=== PATIENT | male | born 1955 | race Caucasian/White ===

== ENCOUNTER → 2017-10-11 | Day surgery (SDC) | payer BC, OTHER ==
[2017-10-10 09:54] VITALS: BMI 27.2
[~2017-10-11] MED LIST: LACTATED RINGERS 1,000 ML IV SCH; LIDOCAINE 1% 20 ML VIAL (10MG/ML) FOR IV START INTRADERMA PRN; LIDOCAINE 1% INJ 10MG/ML (20 ML MDV) ONE; PROPOFOL 10 MG/ML 20 ML VIAL IV ONE
[2017-10-11 08:53] VITALS: TEMP 97.8
--- NOTE | 2017-10-11 10:31 | P.PCN ---
Date of Procedure: 10/11/17 Procedure(s) Performed: Procedure: Colonoscopy and polypectomy. Preoperative diagnosis: Screening for neoplasia, patient has history of polyps. Postoperative diagnosis: 1. Multiple small polyps snared but no large polyps or cancer. 2. Sigmoid diverticulosis with no evidence of acute diverticulitis or strictures. Preparation: HalfLytely prep. Sedation: Was provided by anesthesia. Brief clinical history: The patient is a 62-year-old male who is scheduled for this evaluation for screening for neoplasia because of history of polyps. His last exam was in 2013. The patient has no abdominal complaints, bleeding or anemia. Procedure: With the patient on his left lateral decubitus position and after informed consent and adequate sedation, the perianal area was inspected and it did not show any fissures or fistulas. There were no masses felt on digital rectal examination. The Olympus CFQ 160L video colonoscope was then inserted in the rectum in the usual fashion and advanced to the cecum. There were multiple small polyps seen and were snared and retrieved by suction. One was around the hepatic flexure and 3 were in the sigmoid. No large polyps or cancer was seen. Several diverticular orifices were seen scattered in the sigmoid but there was no evidence of acute diverticulitis or strictures. I retroflexed the endoscope in the rectum before the endoscope was withdrawn. The patient tolerated the procedure well. Plan: The patient was reassured. Discussed dietary measures. He will follow up with you as planned and I recommended repeat exam in 3-5 years.
[2017-10-11 10:38] VITALS: BP 138/84; PULSE 80; RESP 18
== END | disposition home or self-care (01) ==
LOC: ORWHC2ENDO 12:18
DX: Z12.11 Encounter for screening for malignant neoplasm of colon (principal); D12.3 Benign neoplasm of transverse colon; D12.5 Benign neoplasm of sigmoid colon; K57.30 Diverticulosis of large intestine without perforation or abscess without bleeding; E11.9 Type 2 diabetes mellitus without complications; I10 Essential (primary) hypertension; E78.5 Hyperlipidemia, unspecified; F17.210 Nicotine dependence, cigarettes, uncomplicated; Z86.010 Personal history of colon polyps; Z88.0 Allergy status to penicillin; Z79.84 Long term (current) use of oral hypoglycemic drugs; Z79.899 Other long term (current) drug therapy; Z96.642 Presence of left artificial hip joint
CPT/HCPCS: 45385; 88305; J2001; J2704

== ENCOUNTER → 2017-12-31 | Outpatient (CLI) | payer BC ==
--- NOTE | 2018-01-01 07:22 | US ---
EXAMINATION TYPE: US carotid duplex BILAT DATE OF EXAM: 12/31/2017 COMPARISON: NONE CLINICAL HISTORY: I65.02 Occlusion and stenosis of left vertebral ar. Left carotid bruit EXAM MEASUREMENTS: RIGHT: Peak Systolic Velocity (PSV) cm/sec ----- Right CCA: 66.8 ----- Right ICA: 86.7 ----- Right ECA: 128.7 ICA/CCA ratio: 1.3 RIGHT: End Diastole cm/sec ----- Right CCA: 18.6 ----- Right ICA: 28.0 ----- Right ECA: 22.0 LEFT: Peak Systolic Velocity (PSV) cm/sec ----- Left CCA: 80.2 ----- Left ICA: 90.1 ----- Left ECA: 79.1 ICA/CCA ratio: 1.1 LEFT: End Diastole cm/sec ----- Left CCA: 22.8 ----- Left ICA: 31.6 ----- Left ECA: 12.8 VERTEBRALS (direction of flow): Right Vertebral: Antegrade Left Vertebral: Antegrade Rhythm: Normal Mild plaque bilateral bifurcations. No evidence of significant stenosis IMPRESSION: Mild degree of grayscale atheromatous plaquing with no sonographically evident hemodynam ically significant stenosis within either visualized carotid arterial system.
== END | disposition home or self-care (01) ==
LOC: RADUSWWP 16:43
PROVIDERS: ATTEND Family Medicine
DX: I70.90 Unspecified atherosclerosis (principal)
CPT/HCPCS: 93880

== ENCOUNTER 2020-10-12 07:57 | Day surgery (SDC) | payer BC, MEDICARE ==
[2020-10-08 10:08] VITALS: BMI 43.0
[~2020-10-12 07:57] MED LIST changes: +ALPRAZolam 0.25 MG TAB PO PRN; +ALPRAZolam 0.5 MG TAB PO PRN; +ASPIRIN 325 MG TAB PO STA; +HEPARIN SODIUM,PORCINE 10,000 UNIT in SODIUM CHLORIDE 0.9% 1,000 ML IRRIGATION PRN; +HEPARIN SODIUM,PORCINE 2,500 UNIT in SODIUM CHLORIDE 0.9% 250 ML IRRIGATION PRN; -LACTATED RINGERS 1,000 ML IV SCH; -LIDOCAINE 1% 20 ML VIAL (10MG/ML) FOR IV START INTRADERMA PRN; -LIDOCAINE 1% INJ 10MG/ML (20 ML MDV) ONE; +NITROGLYCERIN SL TABS 0.4 MG TAB SUBLINGUAL PRN; -PROPOFOL 10 MG/ML 20 ML VIAL IV ONE; +SODIUM CHLORIDE 0.9% 1,000 ML in EMPTY BAG 1 BAG IV ONE
[2020-10-12] MEDS ORDERED: ASPIRIN 325 MG TAB ONE (08:22)
[2020-10-12 08:50] LABS: Glucose,Whole Blood 205 mg/dL (75-99)
[2020-10-12] MEDS ORDERED: INSULIN ASPART (NovoLOG) 100 UNIT/ML VIAL SQ ONE (08:53)
[2020-10-12 08:55] VITALS: TEMP 97.9
[2020-10-12] MEDS ORDERED: LIDOCAINE 1% INJ 10MG/ML (20 ML MDV) ONE (08:57)
[2020-10-12] MEDS ORDERED: HEPARIN SODIUM 1,000 UN/ML (10ML VL) ONE (08:57)
[2020-10-12] MEDS ORDERED: VERAPAMIL 2.5 MG/ML 2 ML AMP ONE (08:57)
[2020-10-12] MEDS ORDERED: fentaNYL (PF) 50 MCG/ML 2 ML AMP ONE (09:13)
[2020-10-12] MEDS ORDERED: MIDAZOLAM 2 MG/2 ML VIAL IV ONE (09:13)
[2020-10-12] MEDS ORDERED: fentaNYL (PF) 50 MCG/ML 2 ML AMP IV ONE (09:14)
[2020-10-12] MEDS ORDERED: LIDOCAINE 1% INJ 10MG/ML (20 ML MDV) SQ ONE (09:16)
[2020-10-12] MEDS: VERAPAMIL SYRINGE (5 MG/10 ML) INTRAARTER ONE ×2 (09:17→09:29)
[2020-10-12] MEDS ORDERED: IOPAMIDOL-370 125ML BTL INJ ONE (09:29)
[2020-10-12] MEDS ORDERED: RX INFO: IV CONTRAST WAS GIVEN 1 EACH MISC MISCELLANE PRN (10:05)
--- NOTE | 2020-10-12 10:13 | P.CARDCATH ---
Description of Procedure: PROCEDURES PERFORMED: Left heart catheterization, bilateral coronary angiography INDICATION: Abnormal stress test HISTORY: Patient is a pleasant 65-year-old male with history of hypertension, diabetes mellitus, hyperlipidemia who has been having dyspnea on exertion over past year. He had a Cardiolite stress test performed which showed inducible inferior ischemia as well as poor exercise tolerance and heart catheterization was recommended. CONSENT:I have discussed the risks, benefits and alternative therapies for the above-mentioned procedure and for both sedation/analgesia as well as necessary blood product administration, if indicated, as they pertain to this patient. The patient has indicated understanding and acceptance of the risks and procedures discussed. PROCEDURE: After the risks, benefits and alternatives of the above mentioned procedure explained in detail with the patient, informed consent was obtained. Patient was taken to the catheterization lab and prepped and draped in usual fashion. 1% lidocaine was used to anesthetize the right radial artery. A 6- Bhutanese sheath was placed in the right radial artery using modified Seldinger technique. Left coronary angiography was performed with a 5-Bhutanese JL 3.5 catheter and right coronary angiography was performed with a 5-Bhutanese JR5 catheter in various views. A 5-Bhutanese FR5 catheter was inserted into the left ventricle and pressure measurements were obtained. The right radial sheath was removed and a TR band was placed with hemostasis achieved. The patient tolerated the procedure well. Patient was transported back to the post catheterization holding area in stable condition. Conscious Sedation: Patient was monitored under the direct supervision of vision of myself for conscious sedation using Versed and fentanyl for a total duration of 14 minutes HEMODYNAMICS: Ao: 137/76 LV: 134/3, LVEDP 12 SELECTIVE CORONARY ARTERIOGRAPHY: LEFT MAIN: The left main is a large caliber vessel which trifurcates into the LAD, ramus and circumflex. There is no significant stenosis. LEFT ANTERIOR DESCENDING CORONARY ARTERY: LAD is a large caliber vessel which wraps around to the apex. There is mild proximal LAD 20% stenosis and mid LAD 30-40% stenosis and otherwise mild luminal irregularities. There are left to right collaterals. RAMUS INTERMEDIUS: The ramus is a moderate caliber vessel with mild luminal irregularities. LEFT CIRCUMFLEX CORONARY ARTERY: Left circumflex is a moderate caliber vessel with mild luminal irregularities. RIGHT CORONARY ARTERY: The right coronary artery is a large caliber vessel which gives off a PDA and PLV branch and is the dominant vessel. There is a mid RCA 100% stenosis with some right to right collaterals. FINAL IMPRESSION: 1. CAD as described above with 100% BRIDGE REPAIRER of RCA and mild disease up to 30-40% mid LAD of the left system with left to right and right to right collaterals. 2. Normal left sided filling pressures PLAN: 1. Aggressive risk factor modification per most recent ACC/AHA guidelines. 2. Would treat RCA BRIDGE REPAIRER medically as patient is not having much angina symptoms with collaterals. If symptoms are resistant to medications may consider BRIDGE REPAIRER procedure. 3. Follow-up in the office in 1-2 weeks.
[2020-10-12 15:36] VITALS: RESP 16
[2020-10-12 15:38] VITALS: BP 162/72; PULSE 52
== END 2020-10-12 14:13 | disposition home or self-care (01) ==
LOC: CATHCVL 07:57
PROVIDERS: ATTEND Internal Medicine
DX: I25.10 Atherosclerotic heart disease of native coronary artery without angina pectoris (principal); I25.82 Chronic total occlusion of coronary artery; I10 Essential (primary) hypertension; E78.5 Hyperlipidemia, unspecified; R60.0 Localized edema; R94.31 Abnormal electrocardiogram [ECG] [EKG]; J44.9 Chronic obstructive pulmonary disease, unspecified; R94.39 Abnormal result of other cardiovascular function study; E11.9 Type 2 diabetes mellitus without complications; F17.210 Nicotine dependence, cigarettes, uncomplicated; Z79.84 Long term (current) use of oral hypoglycemic drugs; Z79.4 Long term (current) use of insulin; Z79.51 Long term (current) use of inhaled steroids; Z79.899 Other long term (current) drug therapy; Z88.5 Allergy status to narcotic agent; Z88.0 Allergy status to penicillin
CPT/HCPCS: 93458; J2250; J2001; J3010; J1644; Q9967

== ENCOUNTER → 2020-10-18 | Outpatient (CLI) | payer MEDICARE ==
--- NOTE | 2020-10-18 15:06 | US ---
EXAMINATION TYPE: US venous doppler duplex LE LT DATE OF EXAM: 10/18/2020 2:58 PM COMPARISON: NONE CLINICAL HISTORY: R22.42 swelling lump mass left. Left leg pain and swelling x 3 weeks SIDE PERFORMED: Left TECHNIQUE: The lower extremity deep venous system is examined utilizing real time linear array sonog ajay with graded compression, doppler sonography and color-flow sonography. VESSELS IMAGED: Common Femoral Vein Deep Femoral Vein Greater Saphenous Vein * Femoral Vein Popliteal Vein Small Saphenous Vein * Proximal Calf Veins (* superficial vessels) Left Leg: Appears negative for DVT IMPRESSION: Grayscale, color doppler, spectral doppler imaging performed of the deep veins of the lo wer extremities. There is normal flow, compressibility, vascular waveforms.
== END | disposition home or self-care (01) ==
LOC: RADUSWWP 14:25
PROVIDERS: ATTEND Family Medicine
DX: R22.42 Localized swelling, mass and lump, left lower limb (principal)

== ENCOUNTER 2020-11-03 07:14 | Day surgery (SDC) | payer BC, MEDICARE ==
[2020-11-02 09:16] VITALS: BMI 42.3
[~2020-11-03 07:14] MED LIST changes: -ALPRAZolam 0.25 MG TAB PO PRN; -ALPRAZolam 0.5 MG TAB PO PRN; -ASPIRIN 325 MG TAB PO STA; -HEPARIN SODIUM,PORCINE 10,000 UNIT in SODIUM CHLORIDE 0.9% 1,000 ML IRRIGATION PRN; -HEPARIN SODIUM,PORCINE 2,500 UNIT in SODIUM CHLORIDE 0.9% 250 ML IRRIGATION PRN; +LACTATED RINGERS 1,000 ML IV SCH; +LIDOCAINE 1% (10MG/ML) FOR IV START INTRADERMA PRN; -NITROGLYCERIN SL TABS 0.4 MG TAB SUBLINGUAL PRN; -SODIUM CHLORIDE 0.9% 1,000 ML in EMPTY BAG 1 BAG IV ONE
[2020-11-03 07:58] VITALS: TEMP 97.7
[2020-11-03] MEDS ORDERED: PROPOFOL 10 MG/ML 20 ML VIAL IV ONE (08:04)
--- NOTE | 2020-11-03 08:27 | P.PCN ---
Date of Procedure: 11/03/20 Procedure(s) Performed: BRIEF HISTORY: Patient is a 65-year-old pleasant male scheduled for an elective colonoscopy as a part of evaluation of prior history of colon polyps. Last colonoscopy was 5 years ago. PROCEDURE PERFORMED: Colonoscopy with snare polypectomy. PREOPERATIVE DIAGNOSIS: history of colon polyps. IV sedation per Anesthesia. PROCEDURE: After informed consent was obtained, the patient, was brought into the endoscopy unit. IV sedation was administered by Anesthesia under continuous monitoring. Digital rectal examination was normal. Initially the Olympus CF-160 flexible video colonoscope was then inserted in the rectum, gradually advanced into the cecum without any difficulty. Careful examination was performed as the scope was gradually being withdrawn. Ileocecal valve and the appendiceal orifice were visualized and appeared normal. Prep was excellent. The base of cecum there was a 1 cm flat polyp removed by snare polypectomy. In the ascending colon there was a 5 mm polyp removed by snare polypectomy. In the transverse colon there were 4 polyps measuring between 5 mm to 7 mm all of which were removed by snare polypectomy. In the sigmoid colon there was a 4 mm polyp removed by snare polypectomy. Rest of the mucosa of the cecum, ascending colon, transverse colon, descending colon, sigmoid colon, and rectum appeared normal. Retroflexion was performed in the rectum and no lesions were seen. The patient tolerated the procedure well. IMPRESSION: 1 cm cecal polyp status post polypectomy 5 mm to 7 mm 4 transverse colon polyp status post snare polypectomy 5 mm ascending colon polyp status post polypectomy 4 mm sigmoid colon polyp status post polypectomy RECOMMENDATIONS: Findings of this examination were discussed with the patient less his family. He was advised to follow with the biopsy results. If the biopsy results adenoma he can have a repeat colonoscopy in 3-5 years.
[2020-11-03 08:31] VITALS: RESP 16
[2020-11-03 08:45] VITALS: BP 148/80; PULSE 81
== END 2020-11-03 09:10 | disposition home or self-care (01) ==
LOC: ORWHC2ENDO 07:14
PROVIDERS: ATTEND Internal Medicine Gastroenterology
DX: Z86.010 Personal history of colon polyps (principal); D12.0 Benign neoplasm of cecum; D12.2 Benign neoplasm of ascending colon; D12.3 Benign neoplasm of transverse colon; D12.4 Benign neoplasm of descending colon; E11.9 Type 2 diabetes mellitus without complications; Z88.0 Allergy status to penicillin; Z88.5 Allergy status to narcotic agent; E66.01 Morbid (severe) obesity due to excess calories; Z87.19 Personal history of other diseases of the digestive system
CPT/HCPCS: 45385; 88305; J2704

== ENCOUNTER → 2021-08-25 | Outpatient (CLI) | payer MEDICARE ==
--- NOTE | 2021-08-25 20:15 | CTL ---
EXAMINATION TYPE: CT Low Dose Lung DATE OF EXAM ORDERED: 08/25/2021 HISTORY: Nicotine dependence. Lung cancer screening CT DLP: 156.[address] CTDI: 4.0 mGy Automated exposure control for dose reduction was used. SCREENING VISIT: Baseline COMPARISON: None available TECHNIQUE: Low dose computed tomography scan was performed through the chest at 1 mm thick sections a nd reconstructed images in multiple planes at 1 mm and [address] DIAGNOSTIC QUALITY: Satisfactory FINDINGS: LUNG NODULES: Right upper lobe solid 5.[address] image 94. Right lung solid 6.[address] image 158. LUNGS: COPD: Severity: Moderate Fibrosis: Severity: Extensive bilateral pulmonary peripheral reticulations, subtle fibrotic changes a nd groundglass opacities, demonstrating rather diffuse involvement of the lungs most evident in the u pper lobes. Underlying interstitial lung disease cannot be excluded. Lymph nodes: No pathologically enlarged lymph nodes. Other findings: Diffuse bronchial thickening suggestive of chronic bronchitis. RIGHT PLEURAL SPACE: Effusion: None Calcification: None Thickening: None Pneumothorax: None LEFT PLEURAL SPACE: Effusion: None Calcification: None Thickening: None Pneumothorax: None HEART: Heart Size: Enlarged Coronary Calcification: Moderate to marked Pericardial Effusion: None OTHER FINDINGS: Upper abdomen: Suspected right adrenal adenoma measuring 16mm. Slightly atrophic pancreas. Bony thorax: Degenerative changes of the thoracic spine. Supraclavicular region: None Other: Arterial atherosclerotic calcifications. The right pulmonary artery measures up to 3.3 cm and the left pulmonary artery measures 3.2 cm suggestive of pulmonary hypertension. IMPRESSION: Few pulmonary nodules measuring up to 6.5 mm. The above described pulmonary findings are nonspecific and could be related to chronic interstitial lung disease. Recommend clinical correlation , correlation with pulmonary function tests and further pulmonology consultation. Other findings as d escribed above. CT LUNG RAD AND CT CHEST RECOMMENDATION: Lung-Rad 3 Probably Benign: 6 month follow-up LDCT. S Modifier (other clinically significant findings): As above.
== END | disposition home or self-care (01) ==
LOC: RADCTMAIN 15:06
PROVIDERS: ATTEND Family Medicine
DX: Z12.2 Encounter for screening for malignant neoplasm of respiratory organs (principal); R91.8 Other nonspecific abnormal finding of lung field; Z87.891 Personal history of nicotine dependence
CPT/HCPCS: 71271

== ENCOUNTER → 2023-05-15 | Outpatient (CLI) | payer MEDICARE ==
--- NOTE | 2023-05-15 12:16 | CTL ---
EXAMINATION TYPE: CT Low Dose Lung DATE OF EXAM ORDERED: 05/15/2023 HISTORY: . Lung cancer screening CT DLP: 175.[address] CTDI: 4.30 mGy Automated exposure control for dose reduction was used. SCREENING VISIT: Follow-up. COMPARISON: 08/25/2021. TECHNIQUE: Low dose computed tomography scan was performed through the chest at 1 mm thick sections a nd reconstructed images in multiple planes at 1 mm and [address] DIAGNOSTIC QUALITY: Satisfactory FINDINGS: Mediastinum and [place]: Numerous enlarged lymph nodes are seen within the left hilar region and mediast inum that measure up to 4.8 cm in short axis diameter. The mediastinal nodes are in the AP window and left aspect of the mediastinum. Pleural and Pericardial spaces: There are no pleural or pericardial effusions. Upper Abdomen: The visualized upper abdomen is unremarkable. Cardiovascular: There is mild vascular calcification within the thoracic aorta without evidence of an eurysmal dilation. Moderate to severe coronary artery calcifications are seen. Lung Parenchyma and Airways: There is [id number] diffuse centrilobular emphysema. There is a 6. 5 mm nodule in the right upper lobe on series 4 image 103 which is unchanged. There is a 7.1 mm nodul e in the right upper lobe on series 4 image 153 which is unchanged. There is a new irregular masslike opacity within the left upper lobe measuring 4.4 x 4.2 cm in diameter centered on series 4 image 80. This extends inferiorly to the hilum which attaches to significant adenopathy described above. There is an additional new nodule within the left upper lobe measuring 1.2 cm on series 4 image 110. Adjac ent nodule is also seen in this region. There are scattered inflammatory airway changes and round gla ss nodularity in a centrilobular distribution. Bones: No fracture or aggressive osseous lesion. IMPRESSION: 1. New large left upper lobe mass with contiguous adenopathy in the left hilar region and mediastinum is most likely malignancy. 2. Additional new nodules within the left upper lobe are also likely malignancy. 3. Moderate coronary artery calcifications. CT LUNG RAD AND CT CHEST RECOMMENDATION: Lung-Rad 4B or 4X Very Suspicious: Follow-up Chest CT with o r without contrast or PET/CT and/or tissue sampling. PET/CT may be used when there is a > 8 mm solid component.
== END | disposition home or self-care (01) ==
LOC: RADCTMAIN 08:23
PROVIDERS: ATTEND Family Medicine
DX: Z12.2 Encounter for screening for malignant neoplasm of respiratory organs (principal); J43.2 Centrilobular emphysema; R59.0 Localized enlarged lymph nodes; R91.8 Other nonspecific abnormal finding of lung field; I25.10 Atherosclerotic heart disease of native coronary artery without angina pectoris; F17.210 Nicotine dependence, cigarettes, uncomplicated
CPT/HCPCS: 71271

== ENCOUNTER → 2023-05-25 | Outpatient (CLI) | payer MEDICARE ==
--- NOTE | 2023-05-28 12:17 | PE ---
EXAMINATION TYPE: PET CT fusion skull to thigh DATE OF EXAM: 05/25/2023 CLINICAL INDICATION:Male, 67 years old with history of R91.8 SPN; TECHNIQUE: Following the intravenous administration of 9.3 mCi of F-18 FDG, whole body images are p erformed from the skull base to the midthigh. Images are reviewed on the computer in the coronal, ax ial, and sagittal planes. Reconstructed rotating images are created on independent workstation and r eviewed on the computer. A non-contrast CT is performed in conjunction with the PET scan. Glucose l evel 99 mg/dL CT DLP: 1100 mGycm, Automated exposure control for dose reduction was used. COMPARISON: CT 05/15/2023, PET/CT None, FINDINGS: Mediastinal SUV mean is 2.7. Hepatic parenchyma SUV mean is 1.8. SKULL BASE AND NECK: No suspicious radiotracer activity. CHEST, MEDIASTINUM, AND HILAR REGION: * Conglomerate mass in the left upper lung along the left superior pulmonary hilar region. Max SUV 1 2.1 Mass. Measures 6.1 x 4.5 cm. * AP window lymph node lymph node measuring 3.4 x 3.0 cm Max SUV 9.3. * Left upper lung pulmonary nodule measuring 10 mm Max SUV 8.9. * Prevascular space lymph node max SUV 10 point a measuring 16 mm. Left supraclavicular lymph nodes measuring Max SUV 8.7 measuring 6 mm. ABDOMEN AND PELVIS: No suspicious radiotracer activity. MUSCULOSKELETAL STRUCTURES: Abnormal uptake within the osseous structures including: * L5 axis SUV 12.7 * T11 max SUV 8.6 * C7 max SUV 7.9 * Left anterior arch of C1 vertebrae max SUV 7.3. * Right rib 5 Max SUV 6.7 * Right sacrum max SUV 9.1. SOFT TISSUES: Abnormal uptake within the right gluteal cleft with soft tissue nodule measuring 17 mm max SUV 12.0. OTHER CT: Atherosclerotic severe arterial vasculature. Right adrenal nodule measuring 18 mm and negat sam Hounsfield units compatible with lipid rich adrenal adenoma. Right renal cyst. Left hip arthropla sty changes. Bilateral fat-containing inguinal hernias. Prostatomegaly. IMPRESSION: 1. Left upper lung mass with metastatic disease to the osseous structures, mediastinum, and left sup raclavicular region. There is at least one additional pulmonary nodule in the left upper lung with in creased metabolic activity also present. Right gluteal fold focal uptake measuring 17 mm correlate wi th physical exam.
== END | disposition home or self-care (01) ==
LOC: RADPETMAIN 09:34
PROVIDERS: ATTEND Internal Medicine
DX: R91.8 Other nonspecific abnormal finding of lung field (principal)
CPT/HCPCS: 78815; A9552

== ENCOUNTER 2023-06-13 11:11 | Day surgery (SDC) | payer MEDICARE ==
[2023-06-11 10:08] VITALS: BMI 37.5
[~2023-06-13 11:11] MED LIST changes: -LIDOCAINE 1% (10MG/ML) FOR IV START INTRADERMA PRN
[2023-06-13 12:22] LABS: Glucose,Whole Blood 122 mg/dL (70-110)
[2023-06-13] MEDS: LACTATED RINGERS 1,000 ML IV SCH (12:22)
[2023-06-13 12:24] VITALS: TEMP 98.3
[2023-06-13] MEDS ORDERED: NEOSTIGMINE 1 MG/ML 10 ML VIAL ONE (12:54)
[2023-06-13] MEDS ORDERED: PROPOFOL 10 MG/ML 20 ML VIAL IV ONE (12:54)
[2023-06-13] MEDS ORDERED: PHENYLEPHRINE-0.9% NACL SYG 1,000 MCG/10 ML SYRINGE ONE (12:54)
[2023-06-13] MEDS ORDERED: LIDOCAINE 1% INJ 10MG/ML (20 ML MDV) ONE (12:54)
[2023-06-13] MEDS ORDERED: fentaNYL (PF) 50 MCG/ML 2 ML AMP ONE (12:54)
[2023-06-13] MEDS ORDERED: ROCURONIUM 10 MG/ML (5 ML VIAL) IV ONE (12:54)
[2023-06-13] MEDS ORDERED: SUCCINYLCHOLINE CHLORIDE 200 MG/10 ML VIAL IV ONE (12:54)
[2023-06-13] MEDS ORDERED: GLYCOPYRROLATE 0.2 MG/ML 2 ML VIAL ONE (12:54)
--- NOTE | 2023-06-13 13:10 | CT ---
EXAMINATION TYPE: CT Chest wo ION protocol DATE OF EXAM: 06/13/2023 COMPARISON: PET CT 05/25/2023 HISTORY: PRE OP BRONCHOSCOPY CT DLP: 863.8 mGycm Automated exposure control for dose reduction was used. Contrast: None Technique: Axial images 1 mm thick sections. Study is without intravenous contrast. FINDINGS: There is vague increased density within the anterior left upper lung field measuring approximately 1. 2 cm on this study. Left upper lobe mass is again evident measuring approximately 3.8 cm in diameter . This correlates with the PET/CT abnormality. This extends into the hilum. There is a small 0.8 cm nodular density anterior right lung. Series 4 image 164. Multiple enlarged lymphadenopathy is adjacent to the aortic arch and within the right hilum. Note is made of coronary artery calcification. IMPRESSION: 1. CT PERFORMED FOR BRONCHOSCOPY GUIDANCE. 2. LUNG MASS LEFT UPPER LOBE WITH EXTENSION INTO THE HILUM WITH MARKEDLY ENLARGED MEDIASTINAL AND HIL AR LYMPH NODES.
--- NOTE | 2023-06-13 14:31 | P.PCN ---
Date of Procedure: 06/13/23 Operative Findings: Description of Procedure: Preoperative Diagnosis: Left upper lobe mass Postoperative Diagnosis: same Procedure(s) Performed: Flexible bronchoscopy Robotic bronchoscopy utilizing the Ion system Robotic-assisted bronchoscopy and addition to radial ultrasound evaluation of the left upper lobe pulmonary mass Robotic-assisted transbronchial needle aspirate, transbronchial biopsies, transbronchial brushing of the left upper lobe lobe mass in addition to a bronchioloalveolar lavage Anesthesia: [place] Surgeon: Fred Champagne Estimated Blood Loss (ml): 0 Pathology: other Condition: stable Disposition: same day Operative Findings: A physical exam was performed. Informed consent was obtained from the patient after explaining all the risks (pneumothorax, life threatening bleeding, infection and adverse effects due to medications), benefits and alternatives to the procedure which the patient appeared to understand and so stated. The patient was connected to the monitoring devices. General anesthesia was induced and the patient was intubated by anesthesia. A final timeout was performed and the procedure confirmed . The bronchoscope was inserted and the airway examined. The flexible bronchoscope was removed and the robotic bronchoscope was inserted. Registration was completed. I next guided the robotic bronchoscope using the navigation system into the anterior segment of the left upper lobe. During the navigation process, the subsegmental airways were quite narrowed and atelectatic. This was essentially due to the extrinsic compression that was created by the left upper lobe mass. Once in proper position, the bronchoscope was frozen. The radial EBUS probe was placed through the bronchoscope and confirmed abnormal u/s images vs normal lung. A needle was placed through the working channel and under fluoroscopic guidance, we sampled the area thought to have the mass twice. We then used a cloud biopsy pattern with ultrasound confirmation for 2 additional passes with the needle. I utilized a 21-gauge needle and transbronchial needle aspirate the left upper lobe mass was done and a total of 2 passes were taken. U/S evaluation was then used to reconfirm location. Forceps were next introduced through working channel and extended the appropriate distance and 3 transbronchial biopsies were performed using fluoroscopic guidance. The u/s probe was then reinserted to confirm location. When confirmed this process was repeated for a total of 8-10 transbronchial biopsies. After reassessment with EBUS, a brush was placed through the extendable working channel for 1 pass with fluoroscopic guidance. U/S evaluation was then used to confirm location. 40ml of saline was then instilled into the area of the lesion. The robotic bronchoscope was removed and the airway inspected with a flexible bronchoscope and 10 ml of effluent from the BAL was collected. The aspirate was bloody and ultimately declotted and based on that, the sample was discarded. Flex. bronchoscope was inserted and regular suctioning was done. At the completion of the procedure, no residual secretions or bloody material within the airway. The bronchoscope was removed. The patient was extubated. FINDINGS: 1.The airways appeared normal 2 Successful navigation, ultrasonographic identification, and biopsies of the left upper lobe mass 3.The the radial ultrasound view was eccentric/concentric RECOMMENDATIONS: Await pathology and cytology results The referring physician will be alerted to the results when available. The patient was advised to follow up with the referring physician with the biopsy results Patient will be called with results.
--- NOTE | 2023-06-13 14:41 | FL ---
Fluoroscopy INDICATION: Pain FINDINGS: Fluoroscopy time: 1 minute 42 seconds. Total dose area product (DAP) in uGy*m?, mGy*cm? (or similar): 10.480 Images obtained: 2. IMPRESSION: 1. Documentation of fluoroscopy.
--- NOTE | 2023-06-13 15:03 | XR ---
EXAMINATION TYPE: XR chest 1V DATE OF EXAM: 06/13/2023 COMPARISON: 05/25/2023 INDICATION: Lung cancer TECHNIQUE: Single frontal view of the chest is obtained. FINDINGS: The heart size is normal. The pulmonary vasculature is normal. There is a mass in the medial left apex corresponding to the patient's lung cancer. There is a tiny density at the level of the diaphragm. A tiny nodule may be present IMPRESSION: 1. Left upper lobe mass corresponding to patient's known lung cancer. 2. Tiny density at the right lung base
[2023-06-13 15:14] LABS: Glucose,Whole Blood 102 mg/dL (70-110)
[2023-06-13 15:21] VITALS: BP 118/78; PULSE 78
[2023-06-13 15:22] VITALS: RESP 18
== END 2023-06-13 15:34 | disposition home or self-care (01) ==
LOC: ORWHC2ENDO 11:11
PROVIDERS: ATTEND Internal Medicine Critical Care Medicine
DX: C34.12 Malignant neoplasm of upper lobe, left bronchus or lung (principal); F17.200 Nicotine dependence, unspecified, uncomplicated; E78.5 Hyperlipidemia, unspecified; E11.9 Type 2 diabetes mellitus without complications; I12.9 Hypertensive chronic kidney disease with stage 1 through stage 4 chronic kidney disease, or unspecified chronic kidney disease; N18.9 Chronic kidney disease, unspecified; E55.9 Vitamin D deficiency, unspecified; J44.9 Chronic obstructive pulmonary disease, unspecified; Z98.890 Other specified postprocedural states; Z79.899 Other long term (current) drug therapy; Z88.5 Allergy status to narcotic agent; Z79.51 Long term (current) use of inhaled steroids; Z88.0 Allergy status to penicillin
CPT/HCPCS: 87798 ×3; 87496; 87498; 87529; 88108; 88305; 88342; 87502; 87634; 88341; 87070; 87205; 87116; 87102; 87206; 87635; 71045; 71250; 31628; 31629; 31623; 31624; J0330; J2710; J2001; J3010; J2704; J2371; S2900

== ENCOUNTER → 2023-07-04 | Outpatient (CLI) | payer MEDICARE ==
--- NOTE | 2023-07-04 10:53 | MR ---
EXAMINATION TYPE: MR brain wo/w con DATE OF EXAM: 07/04/2023 COMPARISON: None HISTORY: Lung cancer. CONTRAST: Performed utilizing 11.5 mL intravenous Gadavist gadolinium contrast. TECHNIQUE: Multiplanar, multiecho imaging on a 3.0 Sharri magnet is performed through the brain. Stud y is performed within 24 hours of arrival to the hospital. The craniovertebral junction is normal. The pituitary is normal. Diffusion-weighted imaging is performed. No abnormal hyperintensity is present to suggest an acute i ntracranial infarct or acute ischemic change. There are multiple scattered punctate areas of hyperintensity on T2 and Inversion Recovery weighted s equences which are non-specific but can be related to microvascular ischemic changes. Ventricles and sulci are appropriate for the patient age. No suspicious enhancement is evident. IMPRESSION: 1. No suspicious changes to suggest metastatic disease. 2. There is fairly extensive chronic-appearing white matter ischemic type changes present
== END | disposition home or self-care (01) ==
LOC: RADMRIMAIN 06:54
PROVIDERS: ATTEND Internal Medicine
DX: I67.82 Cerebral ischemia (principal); C34.90 Malignant neoplasm of unspecified part of unspecified bronchus or lung
CPT/HCPCS: 70553; A9585

== ENCOUNTER → 2023-08-03 | Outpatient (CLI) | payer MEDICARE ==
--- NOTE | 2023-08-03 16:54 | XR ---
EXAMINATION TYPE: XR chest 2V DATE OF EXAM: 08/03/2023 4:44 PM CLINICAL INDICATION:Male, 68 years old with history of R051 ACUTE COUGH; COMPARISON: Chest radiographs from 06/13/2023 TECHNIQUE: XR chest 2V Frontal and lateral views of the chest. FINDINGS: Lungs/Pleura: Masslike opacity in the left upper lung has decreased compared to prior. There is no ev idence of pleural effusion, focal consolidation, or pneumothorax. Pulmonary vascularity: Unremarkable. Heart/mediastinum: Cardiomediastinal silhouette is unremarkable. Musculoskeletal: Multiple level degenerative disc disease changes seen throughout the spine. IMPRESSION: No acute cardiopulmonary disease/process.
== END | disposition home or self-care (01) ==
LOC: RADXRYALE 16:34
PROVIDERS: ATTEND Physician Assistant Medical
DX: R05.1 Acute cough (principal)
CPT/HCPCS: 71046

== ENCOUNTER → 2023-09-20 | Outpatient (CLI) | payer MEDICARE ==
--- NOTE | 2023-09-21 08:33 | PE ---
EXAMINATION TYPE: PET CT fusion skull to thigh DATE OF EXAM: 09/20/2023 CLINICAL INDICATION:Male, 68 years old with history of C34.92 LUNG CANCER; TECHNIQUE: Following the intravenous administration of 11.56 mCi of F-18 FDG, whole body images are performed from the skull base to the midthigh. Images are reviewed on the computer in the coronal, axial, and sagittal planes. Reconstructed rotating images are created on independent workstation and reviewed on the computer. A non-contrast CT is performed in conjunction with the PET scan. Glucose level 111 mg/dL CT DLP: 950 mGycm, Automated exposure control for dose reduction was used. COMPARISON: CT None, PET/CT 05/25/2023, MRI: None FINDINGS: Mediastinal SUV mean is 1.7. Hepatic parenchyma SUV mean is 2.5. SKULL BASE AND NECK: Abnormal uptake along the thyroid cartilage on the right max SUV 5.8 previously 4.7 with linear distr ibution possibly physiologic. CHEST, MEDIASTINUM, AND HILAR REGION: * Conglomerate mass in the left upper lobe. Max SUV 7.6, previously 12. Measuring smaller at 15 x 12 mm previously larger with areas of groundglass opacity measuring 4.5 x 2.7 cm. * The left perihilar lymphadenopathy has decreased in size from prior previously measuring 6.2 x 3.0 r measuring 3.9 x 2.1 cm. * AP window conglomerate lymphadenopathy measuring 4.8 x 10 mm previously 5.8 x 3.0 cm. Max SUV 7.3, previously 11.5. * Enlarging the spinal prevascular space lymph node on the left now measuring 21 mm previously 15 mm Max SUV 12.3, previously 10.6. * Enlarging left supraclavicular lymph node measuring 11 mm Max SUV 15.7, previously 8. * Left upper lobe 8 mm pulmonary nodule previously 10 mm Max SUV 6.3, previously 8.9. ABDOMEN AND PELVIS: Scattered areas of focal uptake within the liver max SUV of the right hepatic lobe anteriorly 9.1 cau date lobe max SUV 0.2. Inferiorly hepatic lobe max SUV 14.2. MUSCULOSKELETAL STRUCTURES: Abnormal uptake within the osseous structures, examples include: * L5 max SUV 3.9, previously 12.7 * T11 max SUV 2.9, previously 8.6 * C7 max SUV 2.5, previously 7.9 * Left anterior arch of C1 vertebrae max SUV 2.6, previously 7.3. * Right rib 5 Max SUV 2.5, previously 6.7 * * Right sacrum max SUV 21.4, previously 9.1. * New Focal uptake in the right proximal femur max SUV 23.6 * Uptake in right iliac bone max SUV 11.3. * New uptake within T12 vertebrae max SUV 17.6 * New T6 posterior elements max SUV 10.0 * New T5 posterior elements max SUV SOFT TISSUES: Abnormal uptake within the right gluteal cleft with soft tissue nodule measuring 17 mm max SUV 12.0. OTHER CT: Atherosclerotic severe arterial vasculature. Right adrenal nodule measuring 18 mm and negat sam Hounsfield units compatible with lipid rich adrenal adenoma. Right renal cyst. Left hip arthropla sty changes. Bilateral fat-containing inguinal hernias. Prostatomegaly. IMPRESSION: Findings suggestive of progression of disease with new areas of uptake within the liver (greater than 5), new osseous lesions and increasing size and metabolic activity of the mediastinal and left neck lymph nodes. Other lesions demonstrate mild decrease in FDG activity as well as the size including th e left lung patchy uptake in left perihilar lymphadenopathy.
== END | disposition home or self-care (01) ==
LOC: RADPETMAIN 15:03
PROVIDERS: ATTEND Internal Medicine
DX: R59.1 Generalized enlarged lymph nodes (principal); J44.9 Chronic obstructive pulmonary disease, unspecified; E11.9 Type 2 diabetes mellitus without complications; I10 Essential (primary) hypertension; C34.12 Malignant neoplasm of upper lobe, left bronchus or lung
CPT/HCPCS: 78815; A9552

== ENCOUNTER → 2023-11-09 | Outpatient (CLI) | payer MEDICARE ==
[2023-11-09 08:40] LABS: African American GFR (CKD) >90 (>60 ml/min/1.73 sqM); Blood Urea Nitrogen 16 mg/dL (9-20); Non-African American GFR(CKD) >90 (>60 ml/min/1.73 sqM)
--- NOTE | 2023-11-09 09:28 | CT ---
EXAMINATION TYPE: CT neck chest w con DATE OF EXAM: 11/09/2023 9:01 AM COMPARISON: Head CT 09/20/2023, 06/13/2023, 05/25/2039 HISTORY: paralysis of vocal cords CT DLP: 1095.2 mGycm Automated exposure control for dose reduction was used. CONTRAST: CT scan of the neck is performed following with IV Contrast, patient injected with 100ML mL of Isovue 300. Axial images are obtained, coronal and sagittal reformatted images are reviewed. FINDINGS: Neck: Thyroid tissue airways patent. Mild sclerotic changes are parotid and submandibular glands. The re is no abnormal fluid collections. Pathologic left supraclavicular lymph node measuring short axis of 1.4 cm versus prior exam of 1.1 cm. Reference image 30 series 3. Similar in size to prior exam. Slight nasal septal lesion. Visualized orbits are symmetric and intact. Oropharynx and nasopharynx sy mmetric. Slight asymmetry of the right vocal cord persist and should be correlated clinically possibl y positional. Multilevel hypertrophic degenerative changes spine. Areas of sclerosis in multilevel facet. Abnormal density is also characterize and metastatic CHEST: Emphysematous changes are seen and there is a left upper lobe lung mass measuring 2 x 2 centimeters a nd previously measuring 1.5 x 1 2 cm. There is an additional nodule seen in the left upper lobe later ally with a prior maximal dimension of 8 mm and now measuring 9 mm. There is a subpleural area of nodularity anteriorly reference image 18 series 6 in the right upper lo be measuring 8 mm is seen with certainty on prior exam. There is a 5 mm nodule in the right upper lobe image 19 series 7. Stable. No consolidative pneumonia. No pleural effusion. No pneumothorax. No pulmonary edema. Left perihilar adenopathy measures 4.9 x 2.2 cm versus 3.9 x 2.1. Left AP window is stable measuring 4.8 x 1.2 cm versus 4.8 x 1.1 cm. Prevascular lymph node is stable . Dense coronary artery calcium dictation. Calcification near the aortic valve. Aorta normal caliber wi th atherosclerotic changes. Pulmonary artery insufficiently enhanced. Heart size mildly enlarged and there is a trace of pericardial fluid Limited assessment of the upper abdomen due to extensive artifa ct. Previously noted hepatic lesion now measures 2.5 x 1.7 cm. Increased in size. Stable bilateral adrena l gland thickening. Additional intrahepatic lesions partially included in the [id number]. Patchy areas of demineralization throughout the vertebral column suspicious for metastatic similar to prior CT scan. IMPRESSION: 1. Incremental increase in size of the left supraclavicular pathologic lymph node now measuring short axis of 1.4 cm versus prior exam of 1.1 cm. 2. Incremental increase in size of left upper lobe lung mass now measuring 2 x 2 cm and previously me asuring 1.5 x 1.2 cm. 3. Left perihilar adenopathy measures 4.9 x 2.2 cm versus 3.9 x 2.1 cm. 4. Left AP window similar size in adenopathy measuring 4.8 x 1.2 versus 4.8 x 1.1 cm. 5. Skeletal changes are stable from prior exam. 6. Intrahepatic dominant lesion suspicious for metastatic disease measuring 2.5 cm versus 1.9 cm rece nt PET/CT. 7. Bilateral adrenal gland thickening. Stable from recent PET CT scan.
== END | disposition home or self-care (01) ==
LOC: RADCTMAIN 07:54
PROVIDERS: ATTEND Otolaryngology
DX: J38.01 Paralysis of vocal cords and larynx, unilateral
CPT/HCPCS: 70491; 71260; 82565; 84520

== ENCOUNTER 2023-11-28 22:40 | Emergency (ER) | payer MEDICARE ==
[2023-11-28 22:46] LABS: Glucose,Whole Blood 125 mg/dL (70-110)
[2023-11-28 22:48] VITALS: TEMP 97.9
[2023-11-28 22:57] LABS: Anisocytosis Slight; Basophils % (A) 0 %; Eosinophils # (A) 0.1 k/uL (0-0.7); Eosinophils % (A) 3 %; HGB 10.8 gm/dL (13.0-17.5); Lymphocytes # (A) 0.8 k/uL (1.0-4.8); Lymphocytes % (A) 15 %; MCH 32.6 pg (25.0-35.0); MCHC 33.7 g/dL (31.0-37.0); MCV 96.8 fL (80.0-100.0); Mean Platelet Volume 7.1; Monocytes # (A) 0.3 k/uL (0-1.0); Monocytes % (A) 6 %; Neutrophils # (A) 3.9 k/uL (1.3-7.7); Neutrophils % (A) 75 %; Platelet Count 382 k/uL (150-450); RBC 3.31 m/uL (4.30-5.90); RDW 16.7 % (11.5-15.5); VBG PH 7.46 (7.31-7.41); WBC 5.2 k/uL (3.8-10.6)
--- NOTE | 2023-11-28 23:12 | ED ---
General Adult HPI - General Chief complaint: Recheck/Abnormal Lab/Rx Stated complaint: AMS Time Seen by Provider: 11/28/23 22:43 Source: patient, EMS, RN notes reviewed, old records reviewed Mode of arrival: EMS Limitations: no limitations - History of Present Illness Initial comments: 68-year-old male presented with altered mental status, hypoglycemia. Patient was evaluated by paramedics for diaphoresis, acute confusion after being last seen well approximately 4 hours prior to this by family. Patient had difficulty breathing and was noted to be hypoglycemic at 29. He was given dextrose, albuterol, Solu-Medrol in a short period of time on CPAP for respiratory support. Upon arrival the patient is awake and alert without complaint. He does not require supplemental oxygen. His blood glucose has normalized. I suspect this episode was related primarily to hypoglycemia. - Related Data Home Medications Medication Instructions Recorded Confirmed metFORMIN HCL [Glucophage] 1,000 mg PO BID 09/12/13 06/13/23 traZODone HCL 100 mg PO HS 10/15/18 06/13/23 Aspirin [Adult Low Dose Aspirin EC] 81 mg PO QAM 10/08/20 06/13/23 Budesonide/Formoterol Fumarate 2 puff INHALATION BID PRN #0 10/08/20 06/13/23 [Symbicort 80-4.5 Mcg Inhaler] Cholecalciferol [Vitamin D3 (25 50 mcg PO DAILY #0 10/08/20 06/13/23 Mcg = 1000 Iu)] Fish Oil/Dha/Epa [Fish Oil 1,200 1 each PO DAILY #0 10/08/20 06/13/23 mg Fish Oil] Insulin Glargine [Lantus Vial] 22 unit SQ HS 10/08/20 06/13/23 Insulin Glargine [Lantus Vial] 30 unit SQ QAM 10/08/20 06/13/23 amLODIPine BESYLATE/BENAZEPRIL 1 cap PO HS 10/08/20 06/13/23 [amLODIPine BESYLATE/BENAZEPRIL 10-40 MG] Atorvastatin [Lipitor] 80 mg PO DAILY 06/11/23 06/13/23 Tamsulosin [Flomax] 0.4 mg PO DAILY 06/11/23 06/13/23 Tirzepatide [Mounjaro] 5 mg SQ TU 06/11/23 06/13/23 Allergies Allergy/AdvReac Type Severity Reaction Status Date / Time Penicillins Allergy Unknown Itching Verified 11/28/23 22:48 codeine Allergy Itching Verified 11/28/23 22:48 Review of Systems ROS Statement: Those systems with pertinent positive or pertinent negative responses have been documented in the HPI. ROS Other: All systems not noted in ROS Statement are negative. Past Medical History Past Medical History: COPD, Diabetes Mellitus, Hyperlipidemia, Hypertension Additional Past Medical History / Comment(s): HX OF COLON POLYPS History of Any Multi-Drug Resistant Organisms: None Reported Past Surgical History: Joint Replacement Additional Past Surgical History / Comment(s): LEFT HIP REPLACEMENT X2, HYDROCELE TESTICLE, Colonoscopy, hemorrhoidectomy, vasectomy. Past Anesthesia/Blood Transfusion Reactions: No Reported Reaction Additional Past Anesthesia/Blood Transfusion Reaction / Comment(s): no blood transfusion Past Psychological History: No Psychological Hx Reported Smoking Status: Current every day smoker - Past Family History Mother Family Medical History: No Reported History Brother(s) Family Medical History: Cancer Additional Family Medical History / Comment(s): throat CA General Exam General appearance: alert, in no apparent distress Head exam: Present: atraumatic, normocephalic Eye exam: Present: normal appearance, PERRL ENT exam: Present: normal exam Neck exam: Present: normal inspection Respiratory exam: Present: wheezes, rhonchi. Absent: respiratory distress Cardiovascular Exam: Present: regular rate, normal rhythm GI/Abdominal exam: Present: soft. Absent: distended, tenderness Extremities exam: Present: normal inspection, normal capillary refill Course Vital Signs 11/28/23 11/29/23 22:46 01:35 Temperature 97.9 F Pulse Rate 84 91 Respiratory 18 16 Rate Blood Pressure 113/70 137/73 O2 Sat by Pulse 95 95 Oximetry - Reevaluation(s) Reevaluation #1: 11/29/23 01:16 Patient reevaluated, adamant that he will be discharged immediately. He is awake and alert. Family concerned and attempts are made to monitor the patient for a more extended period of time. Reevaluation #2: 11/29/23 01:42 Patient refusing further testing and wishes to be discharged Medical Decision Making - Medical Decision Making Was pt. sent in by a medical professional or institution (, PA, COMMODITY SPECIALIST, urgent care, hospital, or longterm...) When possible be specific @ -No Did you speak to anyone other than the patient for history (EMS, parent, family, police, friend...)? What history was obtained from this source @ -No Did you review nursing and triage notes (agree or disagree)? Why? @ -I reviewed and agree with nursing and triage notes Were old charts reviewed (outside hosp., previous admission, EMS record, old EKG, old radiological studies, urgent care reports/EKG's, longterm records)? Report findings @ -No old charts were reviewed Differential Altered Mental Status: Hypoglycemia, DKA, hypercapnia, ETOH, overdose, CO poisoning, trauma, myxedema coma, HTN encephalopathy, infection, encephalitis, psychosis, intercranial hemorrhage, hepatic encephalopathy, meningitis, CVA, this is not meant to be an all-inclusive list EKG interpreted by me (3pts min.). @Sinus rhythm left axis deviation, rate of 85, TN interval 174, QRS duration 126, QTc [address] segment elevation. X-rays interpreted by me (1pt min.). @ -Chest x-ray negative for acute cardiopulmonary findings. CT interpreted by me (1pt min.). @ -None done U/S interpreted by me (1pt. min.). @ -None done What testing was considered but not performed or refused? (CT, X-rays, U/S, lab s)? Why? @ -None What meds were considered but not given or refused? Why? @ -None Did you discuss the management of the patient with other professionals (professionals i.e. , PA, COMMODITY SPECIALIST, lab, RT, psych nurse, social work instructor, senior sas programmer, teacher, fisheries officer, porter sample case)? Give summary @ -No Was smoking cessation discussed for >3mins.? @ -No Was critical care preformed (if so, how long)? @ -No Were there social determinants of health that impacted care today? How? (Homelessness, low income, unemployed, alcoholism, drug addiction, transportation, low edu. Level, literacy, decrease access to med. care, assisted, rehab)? @ -No Was there de-escalation of care discussed even if they declined (Discuss DNR or withdrawal of care, Hospice)? DNR status @ -No What co-morbidities impacted this encounter? (DM, HTN, Smoking, COPD, CAD, Cancer, CVA, ARF, Chemo, Hep., AIDS, mental health diagnosis, sleep apnea, morbid obesity)? @Lung cancer, diabetes Was patient admitted / discharged? Hospital course, mention meds given and route, prescriptions, significant lab abnormalities, going to OR and other p ertinent info. @ -68-year-old male altered mental status with initial blood sugar of 29 he is on insulin but uncertain when he took this medication most recently. Patient states he has an appointment with his oncologist today. He remains awake and alert while in the emergency department. He does have acute lab abnormalities including anemia, hyponatremia at 125 and a persistently low blood sugar. He is given second amp of dextrose in the emergency department and is fed. Undiagnosed new problem with uncertain prognosis? @ -No Drug Therapy requiring intensive monitoring for toxicity (Heparin, Nitro, Insulin, Cardizem)? @ -No Were any procedures done? @ -No Diagnosis/symptom? @ -[Hypoglycemia Acute, or Chronic, or Acute on Chronic? @Acute Uncomplicated (without systemic symptoms) or Complicated (systemic symptoms)? @ -Default Side effects of treatment? @ -No Exacerbation, Progression, or Severe Exacerbation? @ -No Poses a threat to life or bodily function? How? (Chest pain, USA, TN, pneumonia, PE, COPD, DKA, ARF, appy, cholecystitis, CVA, Diverticulitis, Homicidal, Suicidal, threat to staff... and all critical care pts) @ -Yes, hypoglycemia, seizure, coma, - Lab Data Result diagrams: 11/28/23 22:49 11/28/23 23:59 Lab Results 11/28/23 11/28/23 11/28/23 Range/Units 22:45 22:49 22:49 WBC 5.2 (3.8-10.6) k/uL RBC 3.31 L (4.30-5.90) m/uL Hgb 10.8 L (13.0-17.5) gm/dL Hct 32.0 L (39.0-53.0) % MCV 96.8 (80.0-100.0) fL MCH 32.6 (25.0-35.0) pg MCHC 33.7 (31.0-37.0) g/dL RDW 16.7 H (11.5-15.5) % Plt Count 382 (150-450) k/uL MPV 7.1 Neutrophils % 75 % Lymphocytes % 15 % Monocytes % 6 % Eosinophils % 3 % Basophils % 0 % Neutrophils # 3.9 (1.3-7.7) k/uL Lymphocytes # 0.8 L (1.0-4.8) k/uL Monocytes # 0.3 (0-1.0) k/uL Eosinophils # 0.1 (0-0.7) k/uL Basophils # 0.0 (0-0.2) k/uL Anisocytosis Slight VBG pH 7.46 H (7.31-7.41) VBG pCO2 37 (37-51) mmHg VBG HCO3 26 (24-28) mmol/L Sodium (137-145) mmol/L Potassium (3.5-5.1) mmol/L Chloride (98-107) mmol/L Carbon Dioxide (22-30) mmol/L Anion Gap mmol/L BUN (9-20) mg/dL Creatinine (0.66-1.25) mg/dL Est GFR (CKD-EPI)AfAm (>60 ml/min/1.73 sqM) Est GFR (CKD-EPI)NonAf (>60 ml/min/1.73 sqM) Glucose (74-99) mg/dL POC Glucose (mg/dL) 125 H (70-110) mg/dL POC Glu Lumber Straightened ID Chanelle Duncan Calcium (8.4-10.2) mg/dL Total Bilirubin (0.2-1.3) mg/dL AST (17-59) U/L ALT (4-49) U/L Alkaline Phosphatase (38-126) U/L Total Protein (6.3-8.2) g/dL Albumin (3.5-5.0) g/dL 11/28/23 11/29/23 11/29/23 Range/Units 23:59 01:07 01:41 WBC (3.8-10.6) k/uL RBC (4.30-5.90) m/uL Hgb (13.0-17.5) gm/dL Hct (39.0-53.0) % MCV (80.0-100.0) fL MCH (25.0-35.0) pg MCHC (31.0-37.0) g/dL RDW (11.5-15.5) % Plt Count (150-450) k/uL MPV Neutrophils % % Lymphocytes % % Monocytes % % Eosinophils % % Basophils % % Neutrophils # (1.3-7.7) k/uL Lymphocytes # (1.0-4.8) k/uL Monocytes # (0-1.0) k/uL Eosinophils # (0-0.7) k/uL Basophils # (0-0.2) k/uL Anisocytosis VBG pH (7.31-7.41) VBG pCO2 (37-51) mmHg VBG HCO3 (24-28) mmol/L Sodium 125 L (137-145) mmol/L Potassium 4.1 (3.5-5.1) mmol/L Chloride 99 (98-107) mmol/L Carbon Dioxide 23 (22-30) mmol/L Anion Gap 3 mmol/L BUN 16 (9-20) mg/dL Creatinine 0.57 L (0.66-1.25) mg/dL Est GFR (CKD-EPI)AfAm >90 (>60 ml/min/1.73 sqM) Est GFR (CKD-EPI)NonAf >90 (>60 ml/min/1.73 sqM) Glucose 45 L* (74-99) mg/dL POC Glucose (mg/dL) 52 L 118 H (70-110) mg/dL POC Glu Lumber Straightened ID Chanelle Duncan, Chanelle Calcium 8.3 L (8.4-10.2) mg/dL Total Bilirubin 0.7 (0.2-1.3) mg/dL AST 82 H (17-59) U/L ALT 27 (4-49) U/L Alkaline Phosphatase 123 (38-126) U/L Total Protein 5.7 L (6.3-8.2) g/dL Albumin 3.1 L (3.5-5.0) g/dL Disposition Clinical Impression: Hypoglycemia Disposition: HOME SELF-CARE Condition: Fair Instructions (If sedation given, give patient instructions): Hypoglycemia in a Person with Diabetes (ED) Additional Instructions: Please monitor blood glucose closely. Please eat regular meals. Please reduce insulin dosing until you are able to follow-up with your primary care provider Is patient prescribed a controlled substance at d/c from ED?: No Referrals: Rehan River, [Primary Care Provider] - 1-2 days Time of Disposition: 01:43
--- NOTE | 2023-11-29 00:54 | XR ---
EXAM: XR Chest, 2 Views CLINICAL HISTORY: Pt. was called for increased SOB and AMS. Pt. is diabetic and was found with a CBG of 29. Pt. now AOx4 with no current complaints. TECHNIQUE: Frontal and lateral views of the chest. COMPARISON: No relevant prior studies available. FINDINGS: Lungs: Unremarkable. No consolidation. Pleural space: Unremarkable. No pneumothorax. Heart: Unremarkable. No cardiomegaly. Mediastinum: Unremarkable. Normal mediastinal contour. Bones/joints: Unremarkable. No acute fracture. IMPRESSION: No consolidation.
[2023-11-29 01:04] LABS: ALT 27 U/L (4-49); AST 82 U/L (17-59); African American GFR (CKD) >90 (>60 ml/min/1.73 sqM); Albumin 3.1 g/dL (3.5-5.0); Alkaline Phosphatase 123 U/L (38-126); Anion Gap 3 mmol/L; Blood Urea Nitrogen 16 mg/dL (9-20); Calcium 8.3 mg/dL (8.4-10.2); Carbon Dioxide 23 mmol/L (22-30); Chloride 99 mmol/L (98-107); Non-African American GFR(CKD) >90 (>60 ml/min/1.73 sqM); Potassium 4.1 mmol/L (3.5-5.1); Sodium 125 mmol/L (137-145); Total Bilirubin 0.7 mg/dL (0.2-1.3); Total Protein 5.7 g/dL (6.3-8.2)
[2023-11-29 01:06] LABS: Glucose 45 mg/dL (74-99)
[2023-11-29 01:09] LABS: Glucose,Whole Blood 52 mg/dL (70-110)
[2023-11-29] MEDS: DEXTROSE 50% SYRINGE 50 ML IVP STA (01:16)
[2023-11-29 01:35] VITALS: BP 137/73; PULSE 91; RESP 16
[2023-11-29 01:42] LABS: Glucose,Whole Blood 118 mg/dL (70-110)
== END 2023-11-29 01:57 | disposition home or self-care (01) ==
LOC: EC 22:40
CPT/HCPCS: 36415; 71046; 80053; 82803; 85025; 93005; 96374; 99285